=== PATIENT | female | born 1995 | race Caucasian/White ===

== ENCOUNTER → 2018-12-15 20:36 | Observation (INO) ==
[2018-12-15 18:37] LABS: Bilirubin,Urine Negative (Negative); Blood,Urine Negative (Negative); Clarity,Urine Clear (Clear); Color,Urine Yellow (Yellow); Glucose,Urine (UA) Normal (Normal); Ketones,Urine Negative (Negative); Leukocyte Esterase,Urine Trace (Negative); Nitrite,Urine Negative (Negative); PH,Urine 6.5 pH Units (5.0-8.0); Protein,Urine Negative (Neg-Trace); Specific Gravity,Urine < 1.005 (1.010-1.025); Urobilinogen,Urine Normal (Normal)
[2018-12-15 18:39] LABS: Bacteria,Urine Few per hpf (None-Few); Hyaline Casts,Urine None Seen per lpf (None-Few); RBC,Urine 0-3 per hpf (0-3); Squamous Epithelial Cell,Urine Many per lpf (None-Few)
[2018-12-15 18:58] LABS: Amphetamine Screen,Urine Negative ng/mL (Cutoff=1000); Barbiturate Screen,Urine Negative ng/mL (Cutoff=200); Benzodiazepines Screen,Urine Negative ng/mL (Cutoff=200); Cannabinoid Screen,Urine Negative ng/mL (Cutoff = 50); Cocaine Screen,Urine Negative ng/mL (Cutoff= 300); Opiate Screen,Urine Negative ng/mL (Cutoff=300); Phencyclidine Screen,Urine Negative ng/mL (Cutoff=25)
--- NOTE | 2018-12-15 20:11 | Discharge Summary ---
Date of Encounter: 12/15/18 Time of Encounter: 20:11 - Discharge Diagnosis (1) 36 weeks gestation of Priority: Primary Status: Acute Comments: Admitted to observation for possible rupture membranes. Patient is seen by the midwives at [facility] for her care. (2) Vaginal discharge during in third trimester Priority: Secondary Status: Acute Comments: Patient reported possible fluid leakage throughout the day. SSE revealed small amount of white vaginal mucous. No obvious pooling in the vagina noted. FERN negative, nitrazine negative. Vaginosis panel collected and pending at time of note. Will contact patient and treat as indicated for any abnormal results. (3) NST (non-stress test) reactive Priority: Secondary Status: Acute Comments: FHR 130 bpm, moderate variability, +15x15 accels, intermittent variable decels. - Discharge Medications Prescriptions: No Action Dextroamphetamine/Amphetamine [Adderall 10 mg Tablet] 10 mg PO BID Tablet 1 tab PO DAILY Home Medications: Dextroamphetamine/Amphetamine [Adderall 10 mg Tablet] 10 mg PO BID 03/01/17 [History] Tablet 1 tab PO DAILY 10/31/18 [History] Allergies/Adverse Reactions: Allergy/AdvReac Type Severity Reaction Status Date / Time No Known Allergies Allergy Verified 03/01/17 12:41 Data Procedures and tests throughout hospitalization: Laboratory Tests 12/15/18 12/15/18 18:23 18:23 Urine Color Yellow Urine Clarity Clear Urine pH 6.5 Ur Specific [place] < 1.005 L Urine Protein Negative Urine Glucose (UA) Normal Urine Ketones Negative Urine Blood Negative Urine Nitrite Negative Urine Bilirubin Negative Urine Urobilinogen Normal Ur Leukocyte Esterase Trace H Urine Microscopic RBC 0-3 Urine Microscopic WBC 3-5 H Ur Squamous Epith Cells Many H Urine Bacteria Few Hyaline Casts None Seen Ur Culture Indicated? NO. A Urine Opiates Screen Negative Ur Barbiturates Screen Negative Ur Phencyclidine Scrn Negative Ur Amphetamines Screen Negative U Benzodiazepines Scrn Negative Urine Cocaine Screen Negative U Marijuana (THC) Screen Negative Ur Drug Screen Interp See Below Labs on day of discharge: Labs from last 24 hours 12/15/18 12/15/18 18:23 18:23 Urine Color Yellow Urine Clarity Clear Urine pH 6.5 Ur Specific [place] < 1.005 L Urine Protein Negative Urine Glucose (UA) Normal Urine Ketones Negative Urine Blood Negative Urine Nitrite Negative Urine Bilirubin Negative Urine Urobilinogen Normal Ur Leukocyte Esterase Trace H Urine Microscopic RBC 0-3 Urine Microscopic WBC 3-5 H Ur Squamous Epith Cells Many H Urine Bacteria Few Hyaline Casts None Seen Ur Culture Indicated? NO. A Urine Opiates Screen Negative Ur Barbiturates Screen Negative Ur Phencyclidine Scrn Negative Ur Amphetamines Screen Negative U Benzodiazepines Scrn Negative Urine Cocaine Screen Negative U Marijuana (THC) Screen Negative Ur Drug Screen Interp See Below Date of admission: 12/15/18 17:46 Discharging clinician: Mireya Hernandez Anticipated date of discharge: 12/15/18 - Patient Status Disposition: Home, Self-Care Condition: Good Functional capacity at discharge: independent ambulation Overall status at discharge: patient is progressing back to baseline - Discharge Instructions - Diet and Activity Activity: resume usual activities as tolerated Diet: regular diet Hospital Course DIRECTOR OF 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 She reports no color or odor to the fluid and it has happened intermittently throughout the day. She follows with the [facility] midwives but came here to make sure her water broke before she made the drive to [facility]. On sterile speculum exam there was a small amount of white vaginal mucus noted, no obvious pooling. Nitrazine was negative and fern was also negative. Vaginosis panel was collected and sent to the lab and at time of this note the results are still pending. There were a couple of variable decelerations noted on the heart rate monitor so after one hour of no decelerations patient will be discharged home if she has a reactive strip. She will be notified of any abnormal results of the vaginosis panel and treated as appropriate. She is to follow-up with her primary OB provider as scheduled for routine care Time Attestation: Total time spent providing and/or coordinating discharge services: Time Spent: Less than 30 minutes Exam - Constitutional General appearance IM: A&O X 3, pleasant, no acute distress, answers questions appropriately - Respiratory Respiratory exam: Present: CTAB - Cardiovascular Cardiovascular exam IM: Present: RRR, +S1, +S2 - GI/Abdominal GI/Abdominal exam IM: normal bowel sounds, soft - Rectal Rectal exam: deferred - External exam: normal external exam - Extremities Exam Extremities exam IM: Present: full ROM, normal capillary refill, normal inspection, warm - Neurological Exam Neurological exam: alert, normal gait, oriented X3 - VTE Reasons for not Prescribing Prophylaxis: Treatment not Indicated - Low risk for VTE
[2018-12-15 21:03] LABS: Gardnerella DNA Not Detected (Not Detect); Trichomonas DNA Not Detected (Not Detect)
[2018-12-15 21:04] LABS: Candida DNA Not Detected (Not Detect)
== END | disposition home or self-care (01) ==
LOC: 1NENULAB
PROVIDERS: ADMIT Registered Nurse; ATTEND Registered Nurse

== ENCOUNTER 2021-10-12 10:18 | Observation (INO) ==
[2021-10-12 12:28] LABS: Amphetamine Screen,Urine Positive ng/mL (Cutoff=1000); Barbiturate Screen,Urine Negative ng/mL (Cutoff=200); Benzodiazepines Screen,Urine Negative ng/mL (Cutoff=200); Cannabinoid Screen,Urine Positive ng/mL (Cutoff = 50); Cocaine Screen,Urine Negative ng/mL (Cutoff= 300); Opiate Screen,Urine Negative ng/mL (Cutoff=300); Phencyclidine Screen,Urine Negative ng/mL (Cutoff=25)
[2021-10-12 12:30] LABS: Bacteria,Urine Few per hpf (None-Few); Bilirubin,Urine Negative (Negative); Blood,Urine Small (Negative); Clarity,Urine Clear (Clear); Color,Urine Light-Yellow (Yellow); Glucose,Urine (UA) Normal (Normal); Ketones,Urine Negative (Negative); Leukocyte Esterase,Urine Negative (Negative); Mucus,Urine Few per lpf (None-Few); Nitrite,Urine Negative (Negative); Protein,Urine Negative (Neg-Trace); RBC,Urine 0-3 per hpf (0-3); Specific Gravity,Urine 1.008 (1.010-1.025); Squamous Epithelial Cell,Urine Moderate per hpf (None-Few); Transitional Epi Cells,Urine Few per hpf (None-Few); Urobilinogen,Urine Normal (Normal); WBC,Urine 0-3 per hpf (0-3)
[2021-10-12 12:30] LABS: Basophils # 0.1 K/mcL (0.0-0.2); Basophils % 2.3 %; Eosinophils # 0.1 K/mcL (0.0-0.6); Eosinophils % 1.7 %; Hematocrit 43.9 % (35.3-44.9); Hemoglobin 15.1 g/dL (11.5-15.4); Immature Granulocytes % 1.3 % (0-4); Lymphocytes # 1.5 K/mcL (0.6-4.6); Lymphocytes % 27.9 %; Mean Corpuscular HGB Conc 34.4 g/dL (31.6-35.5); Mean Corpuscular Hemoglobin 32.6 pg (28.0-33.3); Mean Corpuscular Volume 94.8 fL (83.0-100.0); Mean Platelet Volume 9.3 fL (9.4-12.4); Monocytes # 0.6 K/mcL (0.0-1.3); Monocytes % 10.7 %; Neutrophils # 2.9 K/mcL (1.6-8.9); Platelet Count 376 K/mcL (140-400); Red Blood Count 4.63 M/mcL (3.82-4.97); Red Cell Distribution Width 11.7 % (11.5-14.5); Segmented Neutrophils % 56.1 %; White Blood Count 5.2 K/mcL (4.3-11.1)
[2021-10-12 13:17] LABS: Acetaminophen < 10 mcg/mL (10-20); BUN/Creatinine Ratio 13 (6-26); Blood Urea Nitrogen 9 mg/dL (6-20); Calcium 9.9 mg/dL (8.6-10.3); Carbon Dioxide 25 mEq/L (23-29); Chloride 103 mEq/L (98-107); Ethanol < 10 mg/dL (Less than 10); Glucose 83 mg/dL (70-105); Osmolality,Calculated 286 (280-300); Potassium 3.5 mEq/L (3.5-5.1); Salicylate < 2.5 mg/dL (15.0-30.0); Sodium 139 mEq/L (136-145); Thyroid Stimulating Hormone 1.148 mcIU/mL (0.340-5.600); eGFR For African Americans > 60 (> 60); eGFR For Non-African Americans > 60 (> 60)
[2021-10-12 18:44] LABS: Influenza A PCR Negative (Negative); Influenza B PCR Negative (Negative); Resp. Syncytial Virus PCR Negative (Negative)
[2021-10-12 19:01] LABS: SARS-CoV-2 by PCR (In House) Negative (Negative)
[2021-10-12] MEDS ORDERED: *HR* LORazepam 2 MG/ML VIAL IM PRN ×2 (20:01→20:19)
[2021-10-12] MEDS ORDERED: Haloperidol Lactate 5 MG/ML VIAL IM PRN ×2 (20:01→20:17)
[2021-10-12] MEDS ORDERED: Ibuprofen 400 MG TABLET PO PRN (20:01)
[2021-10-12] MEDS ORDERED: Acetaminophen 325 MG TABLET PO PRN (20:01)
[2021-10-12] MEDS ORDERED: QUEtiapine Fumarate 25 MG TABLET PO PRN (20:01)
[2021-10-12] MEDS ORDERED: Mag Hydrox/Al Hydrox/Simeth 30 ML UDC PO PRN (20:01)
[2021-10-12] MEDS ORDERED: MOM Conc 10 ML UD.LIQ PO PRN (20:01)
[2021-10-12] MEDS ORDERED: haloperidoL 5 MG TABLET PO PRN ×2 (20:01→20:16)
[2021-10-12] MEDS ORDERED: *HR* LORazepam 1 MG TABLET PO PRN ×2 (20:01→20:18)
[2021-10-12] MEDS: hydrOXYzine pamoate 25 MG CAPSULE PO PRN (21:56)
[2021-10-13] MEDS: (Dextroamphetamine/Amphetamine [Adderall 10 Mg Tablet PO SCH (14:01)
[2021-10-13] MEDS ORDERED: Lurasidone 20 MG TABLET PO SCH (17:00)
[2021-10-13] MEDS: hydrOXYzine pamoate 25 MG CAPSULE PO PRN (20:33)
[2021-10-14] MEDS: (Dextroamphetamine/Amphetamine [Adderall 10 Mg Tablet PO SCH (09:31)
[2021-10-14 09:55] VITALS: BP 122/84; PULSE 92; TEMP 97.9; O2SAT 100
== END 2021-10-14 13:45 | disposition home or self-care (01) ==
LOC: EMEROOARM 10:18 → INTOOBSV 19:57 → 1ANU 19:57
PROVIDERS: ADMIT Psychiatry & Neurology Psychiatry; ATTEND Psychiatry & Neurology Psychiatry